=== PATIENT | female | born 1995 | race Caucasian/White ===

== ENCOUNTER 2018-04-25 00:33 | Emergency (ER) | payer MEDICAID ==
[2017-09-19 05:58] VITALS: Wt 45.4 kg
[~2018-04-25 00:33] MED LIST: ACE3 PO; ALBU2.5V36 INH; ALBU8.5H IH; ALBU8.5H12 IH; AMOX-362 PO; CEPH500C24 PO; HYDR-4225 PO; IBUP800T37 PO; LABE100T28 PO; LOR5/325 PO; LORA-1455 PO; LORA-1456 PO; LORA-630 PO; NIFE90TA51 PO; PRED-1 PO; PREN-127 PO; PROM-110 PO; RANI150C17 PO
--- NOTE | 2018-04-25 00:36 | ER Report ---
History and Physical Time Seen By MD: 00:35 HPI/ROS CHIEF COMPLAINT: Asthma exacerbation HISTORY OF PRESENT ILLNESS: Patient is a 22-year-old female who states past medical history for asthma. She states that she was mowing the lawn with her boyfriend yesterday and started to develop a sore throat along with itching and coughing with bronchospasm. She is complaining of some chest tightness. She does have an albuterol inhaler at home but did not use them. For this reason she presents to emergency department for evaluation REVIEW OF SYSTEMS: Respiratory: Chest tightness, cough Cardiovascular: No chest pain, no palpitations. Gastrointestinal: No vomiting, no abdominal pain. Musculoskeletal: No back pain. Allergies: Uncoded Allergies: CATS (Allergy, Unknown, 09/22/14) Home Meds Active Scripts Albuterol Sulfate 0.083% (ALBUTEROL SULFATE 0.083%) 2.5 Mg/3 Ml Vial.neb, 2.5 MG INH Q6H for cough, #1 BOX 0 Refills Prov:SLADE ALEGRIA MD 04/25/18 Reported Medications Albuterol Sulfate 90 Mcg/Act (PROAIR HFA 90 MCG/ACT) 8.5 Gm Hfa.aer.ad, 2 PUFF IH Q4H Y for DYSPNEA for 7 Days, INHALER Use as needed for asthma symptoms. 09/19/17 Discontinued Scripts Hydrocodone Bit/Acetaminophen (HYDROCODON-ACETAMINOPHEN 5-325) 1 Each Tablet, 1- 2 EACH PO Q4-6H Y for pain, #20 TAB 0 Refills Prov:DEON JAVIER MD 09/19/17 Ibuprofen (IBUPROFEN) 800 Mg Tablet, 1 TAB PO Q8H Y for pain, #40 TAB 0 Refills TAKE WITH FOOD EVERY 8 HOURS Prov:DEON JAVIER MD 09/19/17 Past Medical/Surgical History Asthma Hx Smoking: No Smoking Status: Never Smoker Exposure to Second Hand Smoke?: No Hx Substance Use Disorder: No Hx Alcohol Use: Yes (Occ) Constitutional Vital Sign - Last 24 Hours 04/25/18 04/25/18 04/25/18 04/25/18 00:39 00:50 00:50 00:56 Temp 97.6 Pulse 69 88 95 Resp 16 18 18 B/P (MAP) 130/82 Pulse Ox 97 100 O2 Delivery Room Air Room Air 04/25/18 04/25/18 04/25/18 04/25/18 01:00 01:03 01:18 01:30 Pulse 78 74 B/P (MAP) 119/66 (83) 107/69 (82) Pulse Ox 98 99 04/25/18 01:33 Pulse 79 Pulse Ox 97 Physical Exam General Appearance: The patient is alert, has no immediate need for airway protection and no current signs of toxicity. Eyes: Pupils equal and round no injection. Respiratory: Chest is non tender, lungs are clear to auscultation. Cardiac: regular rate and rhythm Gastrointestinal: Abdomen is soft and non tender, no masses, bowel sounds normal. Musculoskeletal: Neck: Neck is supple and non tender. Extremities have full range of motion and are non tender. Skin: No rashes or lesions. Medical Decision Making ED Course/Re-evaluation ED Course 04/25/2018 12:46:22 am with minimal auditory wheezing this point. Suspect perhaps exposure to grass may have triggered the bronchospasm. We'll give DuoNeb nebulizer treatment at this time. Re-evaluation 04/25/2018 1:34:23 am patient improved after DuoNeb. We will discharge home with prescription for albuterol for her nebulizer: We'll also send with albuterol inhaler. Patient instructed to pickle solution maker children's Yari and used twice per day. Decision to Disposition Date: Apr 25, 2018 Decision to Disposition Time: 01:34 Depart Departure Latest Vital Signs Vital Signs Date Time Temp Pulse Resp B/P (MAP) Pulse Ox O2 Delivery O2 Flow Rate FiO2 04/25/18 01:33 79 97 04/25/18 01:30 107/69 (82) 04/25/18 00:56 18 04/25/18 00:50 Room Air 04/25/18 00:39 97.6 Impression: Primary Impression: Asthma exacerbation Condition: Improved Disposition: HOME OR SELF-CARE New Scripts Albuterol Sulfate 0.083% (ALBUTEROL SULFATE 0.083%) 2.5 Mg/3 Ml Vial.neb 2.5 MG INH Q6H for cough, #1 BOX 0 Refills Prov: SLADE ALEGRIA MD 04/25/18 Patient Instructions: Asthma (DC) Additional Instructions: Albuterol inhaler 1-2 puffs every 4-6 hours as needed for cough or shortness of breath. Problem Qualifiers Primary Impression: Asthma exacerbation Asthma severity: mild Asthma persistence: intermittent Qualified Codes: J45.21 - Mild intermittent asthma with (acute) exacerbation SLADE ALEGRIA MD Apr 25, 2018 00:35
[2018-04-25] MEDS ORDERED: ALBUTEROL/IPRATROPIUM 3 ML NEB NEB ONE (00:45)
[2018-04-25 01:30] VITALS: BP 107/69
[2018-04-25] MEDS ORDERED: ALBUTEROL SULFATE 90 MCG/ACT 8.5 GM HNH INH ONE (01:35)
[2018-04-25] MEDS ORDERED: ALBU2.5V36 INH (01:35)
== END 2018-04-25 01:45 | disposition home or self-care (01) ==
LOC: ER 00:38
DX: J45.21 Mild intermittent asthma with (acute) exacerbation (principal)
CPT/HCPCS: 94640; 99283; J7620

== ENCOUNTER 2018-08-30 10:30 | Emergency (ER) | payer MEDICAID ==
[2017-09-19 05:58] VITALS: Wt 52.2 kg
[~2018-08-30 10:30] MED LIST changes: +LABE100T2 PO; -LABE100T28 PO
--- NOTE | 2018-08-30 10:58 | ER Report ---
History and Physical Time Seen By MD: 10:58 Hx. of Stated Complaint: ptpresents with hx of hitting her 4th toe. unable to move it now or walk comfortably HPI/ROS CHIEF COMPLAINT: Injury to left fourth toe HISTORY OF PRESENT ILLNESS: 23-year-old female patient presents to emergency room with complaint of an injury to the left fourth toe. Patient states that she was chasing after her son when she hit her foot on the wheel of some luggage. She states that since then she's been having significant amounts of pain. She states she has pain with ambulation. She states that she's had some tingling to the toe. Patient states she is not taking any medication for this. She has not iced the toe. Allergies: Uncoded Allergies: CATS (Allergy, Unknown, 09/22/14) Home Meds Active Scripts Albuterol Sulfate 0.083% (ALBUTEROL SULFATE 0.083%) 2.5 Mg/3 Ml Vial.neb, 2.5 MG INH Q6H for cough, #1 BOX 0 Refills Prov:SLADE ALEGRIA MD 04/25/18 Reported Medications Albuterol Sulfate 90 Mcg/Act (PROAIR HFA 90 MCG/ACT) 8.5 Gm Hfa.aer.ad, 2 PUFF IH Q4H PRN for DYSPNEA for 7 Days, INHALER Use as needed for asthma symptoms. 09/19/17 Past Medical/Surgical History Patient has a past medical history of asthma, alcohol use, anxiety. Patient has surgical history of a cyst removed from her neck. Reviewed Nurses Notes: Yes Hx Smoking: No Smoking Status: Never Smoker Exposure to Second Hand Smoke?: No Hx Substance Use Disorder: No Hx Alcohol Use: Yes (Occ) Constitutional Vital Sign - Last 24 Hours 08/30/18 08/30/18 10:35 11:30 Temp 97.9 Pulse 93 Resp 20 B/P (MAP) 115/70 115/72 (86) Pulse Ox 95 O2 Delivery Room Air Physical Exam General appearance: Alert no distress. Respiratory: Chest is non tender, lungs are clear to auscultation. Cardiac: Regular rate and rhythm. Musculoskeletal: Patient has tenderness to the left fourth toe, there is some slight bruising. There is no swelling noted. Patient has no tenderness in the foot itself. DIFFERENTIAL DIAGNOSIS: After history and physical exam differential diagnosis was considered for contusion, fracture, sprain. Medical Decision Making EKG/Imaging Imaging FOOT 3 VIEW LEFT COMPARISONS: None. ADDITIONAL PERTINENT HISTORY: None. FINDINGS: Osseous structures: Negative. Joint spaces: Negative. Surrounding soft tissues: Negative. IMPRESSION: Normal views of the left foot. Report Dictated By: Gigi Bell MD at 08/30/2018 11:40 AM Report E-Signed By: Gigi Bell MD at 08/30/2018 11:41 AM ED Course/Re-evaluation ED Course Patient was admitted to an exam room, history and physical were obtained. The differential diagnoses were considered. On examination patient does have some slight bruising to the toe. X-rays done of the foot which was negative. I discussed the findings with patient. I did go ahead and brandon tape her third and fourth toes together. We will go ahead and discharge her home at this time. I would like her to limit her activity by pain. She is to ice and elevate her foot. She states Tylenol ibuprofen as needed for pain. I will like her to follow-up with primary care provider 1-2 weeks if she still having persistent pain. Patient verbalized understanding and agreement with plan. Decision to Disposition Date: Aug 30, 2018 Decision to Disposition Time: 11:50 Depart Departure Latest Vital Signs Vital Signs Date Time Temp Pulse Resp B/P (MAP) Pulse Ox O2 Delivery O2 Flow Rate FiO2 08/30/18 11:30 115/72 (86) 08/30/18 10:35 97.9 93 20 95 Room Air Impression: Primary Impression: CONTUSION OF LEFT LESSER TOE(S) W/O DAMAGE TO NAIL, INIT Condition: Improved Disposition: HOME OR SELF-CARE Patient Instructions: Contusion in Adults (ED) Additional Instructions: Limit activity by pain. Ice the toe 2-3 times a day. Get plenty of rest. Follow up with your primary care provider in the next 1-2 weeks if pain persists. Brandon tape the toes together for comfort. LISA MARCOS BALL RACKER Aug 30, 2018 10:58
[2018-08-30 11:30] VITALS: BP 115/72
--- NOTE | 2018-08-30 11:45 | RADIOLOGY IMAGING REPORT ---
FACILITY: [facility] PATIENT NAME: Alina Fish : 1995 MR: [id number] V: [id number] EXAM DATE: ORDERING PHYSICIAN: LSIA MARCOS TECHNOLOGIST: Location: [facility] Patient: Alina Fish : 1995 Visit/Account:[id number] Date of Sevice: 08/30/2018 FOOT 3 VIEW LEFT COMPARISONS: None. ADDITIONAL PERTINENT HISTORY: None. FINDINGS: Osseous structures: Negative. Joint spaces: Negative. Surrounding soft tissues: Negative. IMPRESSION: Normal views of the left foot. Report Dictated By: Gigi Bell MD at 08/30/2018 11:40 AM Report E-Signed By: Gigi Bell MD at 08/30/2018 11:41 AM WSN:[id number]
== END 2018-08-30 11:57 | disposition home or self-care (01) ==
LOC: ER 10:34
DX: S90.122A Contusion of left lesser toe(s) without damage to nail, initial encounter (principal); W22.8XXA Striking against or struck by other objects, initial encounter
CPT/HCPCS: 99283

== ENCOUNTER 2019-04-19 23:22 | Emergency (ER) | payer MEDICAID ==
[2017-09-19 05:58] VITALS: BMI 21.4
--- NOTE | 2019-04-19 23:25 | ER Report ---
History and Physical Time Seen By MD: 23:25 HPI/ROS CHIEF COMPLAINT: Dental pain HISTORY OF PRESENT ILLNESS: 23-year-old female presents 3 days after dental extractions by a dentist. She was provided Lortab for pain relief. She notes that she is getting hives and itching around her waist, back and chest. She is also getting nauseated when she takes it. He is not been taking it for 24 hours. She's having severe left lower dental pain where she had wisdom tooth and several other teeth extracted. Patient notes no throat swelling sensation, difficulty swallowing or breathing. REVIEW OF SYSTEMS: Respiratory: No cough, no dyspnea. Cardiovascular: No chest pain, no palpitations. Gastrointestinal: No vomiting, no abdominal pain. Musculoskeletal: No back pain. Allergies: Uncoded Allergies: CATS (Allergy, Unknown, 09/22/14) Home Meds Active Scripts Promethazine Hcl (PROMETHAZINE HCL) 25 Mg Tablet, 25 MG PO Q4H PRN for PAIN, #8 TAB Prov:PREM JACOBSEN DO 04/19/19 Oxycodone Hcl/Acetaminophen (PERCOCET 5-325 MG TABLET) 1 Each Tablet, 1 EACH PO Q4-6H PRN for PAIN, #8 Prov:PREM JACOBSEN DO 04/19/19 Albuterol Sulfate 0.083% (ALBUTEROL SULFATE 0.083%) 2.5 Mg/3 Ml Vial.neb, 2.5 MG INH Q6H for cough, #1 BOX 0 Refills Prov:SLADE ALEGRIA MD 04/25/18 Reported Medications Ibuprofen (IBUPROFEN) 600 Mg Tablet, 1 TAB PO Q6H, TAB 04/19/19 Hydrocodone Bit/Acetaminophen (HYDROCODON-ACETAMINOPHEN 5-325) 1 Each Tablet, 1 EACH PO Q4H, TAB 04/19/19 Amoxicillin 500 Mg Tab (AMOXICILLIN 500 MG TAB) 500 Mg Tablet, 1 TAB PO Q8H, TAB 04/19/19 Albuterol Sulfate 90 Mcg/Act (PROAIR HFA 90 MCG/ACT) 8.5 Gm Hfa.aer.ad, 2 PUFF IH Q4H PRN for DYSPNEA for 7 Days, INHALER Use as needed for asthma symptoms. 09/19/17 Reviewed Nurses Notes: Yes Old Medical Records Reviewed: Yes Hx Smoking: No Smoking Status: Never Smoker Exposure to Second Hand Smoke?: No Hx Substance Use Disorder: No Hx Alcohol Use: Yes (Occ) Constitutional Vital Sign - Last 24 Hours 04/19/19 23:26 Temp 98.4 Pulse 93 Resp 17 B/P (MAP) 115/97 Pulse Ox 99 O2 Delivery Room Air Physical Exam General Appearance: The patient is alert, has no immediate need for airway protection and no current signs of toxicity. Vital signs stable, afebrile, pulse ox normal HEENT: Pupils equal and round no injection. TMs normal, TMJs nontender, examination, the oropharynx reveals 3 tooth sockets in the left lower jaw with good hemostasis Respiratory: Chest is non tender, lungs are clear to auscultation. Cardiac: regular rate and rhythm Gastrointestinal: Abdomen is soft and non tender, no masses, bowel sounds normal. Musculoskeletal: Neck: Neck is supple and non tender. Extremities have full range of motion and are non tender. Skin: No rashes or lesions. DIFFERENTIAL DIAGNOSIS: After history and physical exam differential diagnosis was considered for dental pain, allergic reaction, adverse medication reaction Medical Decision Making ED Course/Re-evaluation ED Course Patient was advised to discontinue the Lortab that she received for pain. She was given a limited supply of oxycodone and Phenergan to control her nausea and symptoms. She is advised to contact her dentist tomorrow. She's also advised to continue ibuprofen 600 mg 3 times daily. Decision to Disposition Date: Apr 19, 2019 Decision to Disposition Time: 23:40 Depart Departure Latest Vital Signs Vital Signs Date Time Temp Pulse Resp B/P (MAP) Pulse Ox O2 Delivery O2 Flow Rate FiO2 04/19/19 23:26 98.4 93 17 115/97 99 Room Air Impression: Primary Impression: Pain, dental Additional Impressions: History of tooth extraction Allergic reaction Condition: Improved Disposition: HOME OR SELF-CARE New Scripts Promethazine Hcl (PROMETHAZINE HCL) 25 Mg Tablet 25 MG PO Q4H PRN for PAIN, #8 TAB Prov: PREM JACOBSEN DO 04/19/19 Oxycodone Hcl/Acetaminophen (PERCOCET 5-325 MG TABLET) 1 Each Tablet 1 EACH PO Q4-6H PRN for PAIN, #8 Prov: PREM JACOBSEN DO 04/19/19 Patient Instructions: Adverse Drug Reaction (ED), Toothache (ED) Additional Instructions: Take ibuprofen 200 mg 3 tablets 3 times a day with food Follow-up with your dentist tomorrow or the next day Problem Qualifiers Additional Impressions: History of tooth extraction Tooth loss class: unspecified tooth loss Qualified Codes: K08.409 - Partial loss of teeth, unspecified cause, unspecified class Allergic reaction Encounter type: initial encounter Qualified Codes: T78.40XA - Allergy, unspecified, initial encounter PREM JACOBSEN DO Apr 19, 2019 23:25
[2019-04-19 23:26] VITALS: BP 115/97
[2019-04-19] MEDS ORDERED: AMOX500T10 PO (23:35)
[2019-04-19] MEDS ORDERED: IBUP600T22 PO (23:35)
[2019-04-19] MEDS ORDERED: HYDR-385 PO (23:35)
[2019-04-19] MEDS ORDERED: oxyCODONE/ACETAMIN 5/325MG TH 2 TAB/BOTTLE PO ONE (23:40)
[2019-04-19] MEDS ORDERED: PROMETHAZINE HCL 25 MG TAB TH 2 TAB/BOTTLE PO ONE (23:40)
[2019-04-19] MEDS ORDERED: PROM-110 PO (23:42)
[2019-04-19] MEDS ORDERED: OXYC-865 PO (23:42)
== END 2019-04-20 00:05 | disposition home or self-care (01) ==
LOC: ER 23:27
DX: K08.409 Partial loss of teeth, unspecified cause, unspecified class (principal); T78.40XA Allergy, unspecified, initial encounter
CPT/HCPCS: 99283